=== PATIENT | female | born 1955 | race Two or more races ===

== ENCOUNTER 2017-12-29 13:23 | Inpatient (IN) | payer OTHER ==
[~2017-12-29] VITALS: Ht 154.9 cm; Wt 90.7 kg
[2017-12-29] MEDS ORDERED: HYZAAR 100-251 EACH PO (14:17)
[2017-12-29] MEDS ORDERED: SYNTHROID150 MCG PO (14:17)
[2017-12-29] MEDS ORDERED: SINGULAIR10 MG PO (14:18)
[2017-12-29] MEDS ORDERED: SYMBICORT 16010.2 GM IH (14:18)
[2018-01-12] MEDS ORDERED: PREDNISONE10 MG PO (11:36)
[2018-01-12] MEDS ORDERED: SYMBICORT 16010.2 GM IH (11:36)
[2018-01-12] MEDS ORDERED: OXYC1TAB9 PO (11:36)
== END 2018-01-12 14:10 | disposition home or self-care (01) | DRG 331 ==
LOC: SURG 01-09 07:30 → SURH 01-09 07:36 → O/R 01-09 07:36 → SURG 01-09 13:22 → SURH 01-09 15:52 → MEDI 01-09 15:52 → SURH 01-09 18:52
PROVIDERS: Surgery
PROC: 0DJD8ZZ Inspection of Lower Intestinal Tract, Via Natural or Artificial Opening Endoscopic (ICD-10-PCS; 2018-01-09)
PROC: 4A033R1 Measurement of Arterial Saturation, Peripheral, Percutaneous Approach (ICD-10-PCS; 2018-01-09)
PROC: 4A12X4Z Monitoring of Cardiac Electrical Activity, External Approach (ICD-10-PCS; 2018-01-09)
PROC: 0DTN4ZZ Resection of Sigmoid Colon, Percutaneous Endoscopic Approach (ICD-10-PCS; principal; 2018-01-09 07:30)
PROC: 3E0F7GC Introduction of Other Therapeutic Substance into Respiratory Tract, Via Natural or Artificial Opening (ICD-10-PCS; 2018-01-10)
DX: K57.32 Diverticulitis of large intestine without perforation or abscess without bleeding (principal); E03.8 Other specified hypothyroidism; I11.9 Hypertensive heart disease without heart failure; E11.9 Type 2 diabetes mellitus without complications; E66.01 Morbid (severe) obesity due to excess calories; J45.20 Mild intermittent asthma, uncomplicated

== ENCOUNTER 2018-01-05 07:55 | Day surgery (SDC) | payer OTHER ==
[~2018-01-05 07:55] MED LIST: HYZAAR 100-251 EACH PO; SINGULAIR10 MG PO; SYMBICORT 16010.2 GM IH; SYNTHROID150 MCG PO
== END 2018-01-05 11:20 | disposition home or self-care (01) ==
LOC: AMB-ENDOS 07:55
DX: K57.30 Diverticulosis of large intestine without perforation or abscess without bleeding (principal); K56.690 Other partial intestinal obstruction

== ENCOUNTER 2019-02-08 07:25 | Day surgery (SDC) | payer OTHER ==
[~2019-02-08 07:25] MED LIST changes: +OXYC1TAB9 PO; +PREDNISONE10 MG PO
== END 2019-02-08 12:40 | disposition home or self-care (01) ==
LOC: AMB-ENDOS 07:25
DX: K57.30 Diverticulosis of large intestine without perforation or abscess without bleeding (principal)

== ENCOUNTER 2020-12-23 05:50 | Day surgery (SDC) | payer OTHER ==
[~2020-12-23 05:50] MED LIST changes: +METFORMIN HCL500 M3 PO
[2020-12-23] MEDS ORDERED: KEFLEX750 MG PO (09:46)
[2020-12-23] MEDS ORDERED: ULTRACET PO (09:47)
== END 2020-12-23 10:55 | disposition home or self-care (01) ==
LOC: CIR.AMB 05:50
PROVIDERS: ATTEND Obstetrics & Gynecology Gynecology
DX: N32.81 Overactive bladder (principal); Z20.822 Contact with and (suspected) exposure to COVID-19
CPT/HCPCS: 64590; 64581; 95972; C1778; L8679

== ENCOUNTER 2022-01-26 05:52 | Day surgery (SDC) | payer OTHER ==
[~2022-01-26] VITALS: Ht 154.9 cm; Wt 96.6 kg
[~2022-01-26 05:52] MED LIST changes: +CALAN SR120 MG PO; +KEFLEX750 MG PO; +ULTRACET PO
== END 2022-01-26 12:00 | disposition home or self-care (01) ==
LOC: CIR.AMB 05:52
PROVIDERS: ATTEND Obstetrics & Gynecology Gynecology
DX: N32.81 Overactive bladder (principal); I10 Essential (primary) hypertension; J45.909 Unspecified asthma, uncomplicated; E11.9 Type 2 diabetes mellitus without complications; E66.9 Obesity, unspecified; Z79.84 Long term (current) use of oral hypoglycemic drugs